=== PATIENT | male | born 1945 | race Caucasian/White ===

== ENCOUNTER 2017-04-02 12:53 | Inpatient (IN) ==
[2017-04-02] MEDS ORDERED: MOM Conc 10 ML UD.LIQ PO PRN (14:49)
[2017-04-02] MEDS ORDERED: Nitroglycerin 0.4 MG TAB.SUBL SL PRN (14:49)
[2017-04-02] MEDS: diazePAM 5 MG TABLET PO PRN (18:22)
[2017-04-02] MEDS: Insulin NPH/REG 70/30 100 UNIT/ML (x5UNIT) SQ SCH (19:35)
[2017-04-02] MEDS: Ranolazine 500 MG TAB.ER.12H PO SCH ×2 (19:40→19:41)
[2017-04-02] MEDS: *HR* OxyCODONE/APAP 5/325 TABLET PO PRN (19:43)
[2017-04-02] MEDS ORDERED: NON-FORMULARY MEDICATION 1 EACH EACH (Insulin Aspart Prot/Insuln Asp [Novolog Mix 70-30 Fl SQ SCH (21:00)
[2017-04-02] MEDS: Cholecalciferol (D-3) 1,000 UNIT TABLET PO SCH (21:14)
[2017-04-03] MEDS: *HR* OxyCODONE/APAP 5/325 TABLET PO PRN ×4 (01:49→22:52)
[2017-04-03] MEDS: Simethicone 80 MG TAB.CHEW PO PRN ×2 (01:51→18:23)
[2017-04-03] MEDS: Bumetanide 1 MG TABLET PO SCH (09:22)
[2017-04-03] MEDS: Cholecalciferol (D-3) 1,000 UNIT TABLET PO SCH ×2 (09:23→21:09)
[2017-04-03] MEDS: Insulin NPH/REG 70/30 100 UNIT/ML (x5UNIT) SQ SCH ×2 (09:26→21:23)
--- NOTE | 2017-04-03 14:25 | Internal Med Progress Note ---
Date of Encounter: 04/03/17 Time of Encounter: 14:15 - Assessment and plan (1) Rib fracture Current Visit: No Status: Acute Assessment and plan: April 03. Continue present analgesics. Qualifiers: Encounter type: subsequent encounter Rib fracture type: single rib Fracture type: closed Laterality: left Fracture healing: with routine healing Qualified Code(s): S22.32XD - Fracture of one rib, left side, subsequent encounter for fracture with routine healing (2) Gout Current Visit: No Status: Chronic Assessment and plan: April 03. Continue allopurinol Qualifiers: Gout site: unspecified site Gout etiology: unspecified cause Chronicity: chronic Presence of tophus: without tophus Qualified Code(s): M1A.9XX0 - Chronic gout, unspecified, without tophus (tophi) (3) Chronic diastolic heart failure Current Visit: No Status: Chronic Assessment and plan: April 03. Continue Bumex, nadolol, and isosorbide (4) HTN (hypertension) Current Visit: Yes Status: Acute Assessment and plan: April 03. Continue nadolol and isosorbide Qualifiers: Hypertension type: essential hypertension Qualified Code(s): I10 - Essential (primary) hypertension - Subjective Interval history: April 03. He was hospitalized in acute care March 29- after presenting to ER following a fall at home with a rib fracture and abrasions. He made satisfactory progress in therapy but it was felt he would benefit from a brief swing bed stay. He has no new complaints today and feels improved. He wishes to be discharged home tomorrow. - Constitutional Vitals: Temp Pulse Resp BP Pulse Ox 98.0 F 72 16 112/55 95 04/03/17 07:11 04/03/17 07:11 04/03/17 07:11 04/03/17 07:11 04/03/17 07:11 Exam: He is ambulating in the room with a quad cane and appears in no acute distress. Affect is bright and cheerful. I reviewed his medications and lab results. Consult Discharge Plan - Plan Referrals: Eddie Estrada MD [Primary Care Provider] - 1 week
[2017-04-03] MEDS: diazePAM 5 MG TABLET PO PRN ×2 (14:37→22:55)
[2017-04-03] MEDS: Ranolazine 500 MG TAB.ER.12H PO SCH (21:09)
[2017-04-04] MEDS: Ranolazine 500 MG TAB.ER.12H PO SCH (08:41)
[2017-04-04] MEDS: Bumetanide 1 MG TABLET PO SCH (08:41)
[2017-04-04] MEDS: Cholecalciferol (D-3) 1,000 UNIT TABLET PO SCH (08:45)
[2017-04-04] MEDS: *HR* OxyCODONE/APAP 5/325 TABLET PO PRN (09:16)
[2017-04-04 09:27] VITALS: BP 119/77
--- NOTE | 2017-04-04 09:35 | Discharge Summary ---
Date of Encounter: 04/04/17 Time of Encounter: 09:25 - Discharge Diagnosis (1) Rib fracture Priority: Primary Status: Acute Qualifiers: Encounter type: subsequent encounter Rib fracture type: single rib Fracture type: closed Laterality: left Fracture healing: with routine healing Qualified Code(s): S22.32XD - Fracture of one rib, left side, subsequent encounter for fracture with routine healing (2) Gout Priority: Secondary Status: Chronic Qualifiers: Gout site: unspecified site Gout etiology: unspecified cause Chronicity: chronic Presence of tophus: without tophus Qualified Code(s): M1A.9XX0 - Chronic gout, unspecified, without tophus (tophi) (3) Chronic diastolic heart failure Priority: Secondary Status: Chronic (4) HTN (hypertension) Priority: Secondary Status: Acute Qualifiers: Hypertension type: essential hypertension Qualified Code(s): I10 - Essential (primary) hypertension - Discharge Medications Prescriptions: OxyCODONE/APAP 5/325 [Percocet 5/325 MG] 1 each PO Q4HR PRN 4 Days #12 tablet PRN Reason: Pain Allopurinol [Zyloprim 100 MG] 100 mg PO DAILY #30 tablet Bumetanide [Bumex] 0.5 mg PO DAILY #15 tablet Home Medications: Cholecalciferol (Vitamin D3) [Vitamin D] 1,000 unit PO BID 01/02/15 [History] Insulin Aspart Prot/Insuln Asp [Novolog Mix 70-30 Flexpen Syrn] 43 unit SQ BID 01/02/15 [History] Nitroglycerin [Nitrostat] 0.4 mg SL PRN PRN 01/02/15 [History] Ranolazine [Ranexa] 500 mg PO BID 01/02/15 [History] Nadolol 20 mg PO DAILY 05/19/15 [History] diazePAM [Valium] 5 mg PO BID PRN 08/02/15 [History] Isosorbide DInitrate [Isosorbide Dinitrate] 30 mg PO BID 03/29/17 [History] Docusate [Colace] 100 mg PO BID PRN capsule 04/02/17 [Rx] Lidocaine Patch [Lidoderm 5% patch] 2 each TP DAILY adh..patch 04/02/17 [Rx] MOM Conc [MILK OF MAGNESIA conc] 10 ml PO DAILY PRN ud.liq 04/02/17 [Rx] Simethicone [Gas-X] 80 mg PO TID PRN tab.chew 04/02/17 [Rx] Allopurinol [Zyloprim 100 MG] 100 mg PO DAILY #30 tablet 04/04/17 [Rx] Bumetanide [Bumex] 0.5 mg PO DAILY #15 tablet 04/04/17 [Rx] OxyCODONE/APAP 5/325 [Percocet 5/325 MG] 1 each PO Q4HR PRN 4 Days #12 tablet [Rx] Allergies/Adverse Reactions: 3 Allergy/AdvReac Type Severity Reaction Status Date / Time carvedilol [From Coreg] Allergy Unknown Gastrointestinal Verified 03/29/17 00:37 Upset Penicillins Allergy Unknown Blister Verified 03/29/17 00:37 atenolol Allergy Rash Verified 03/29/17 00:37 Date of admission: 04/02/17 12:53 Primary care physician: Eddie Estrada MD Consults: 04/02/17 14:44 Consult to Occupational Therapy [CONS] Routine Comment: evaluate, develop, and implement plan of care Reason for Consult: evaluate, develop, and implement plan of care Consult to Physical Therapy [CONS] Routine Comment: evaluate, develop, and implement plan of care Reason for Consult: evaluate, develop, and implement plan of care Consult to Manager Of Exhibitions And Collections [CONS] Routine Reason for SW Consult: Discharge Planning - Patient Status Disposition: Home Health Service Functional capacity at discharge: uses cane/walker Overall status at discharge: patient is progressing back to baseline - Discharge Instructions Follow Up With: Eddie Estrada MD [Primary Care Provider] - 1 week - Diet and Activity Activity: resume usual activities as tolerated Diet: advance to your usual diet Hospital course: Mr. Braga is a 72 year old male who was hospitalized in acute care March 29- after presenting to ER following a fall at home with a rib fracture and abrasions. He made satisfactory progress in therapy but it was felt he would benefit from a brief swing bed stay. He was discharged to swing bed on April 02. He had further improvement and wished to be discharged home on April 04. He still complained of pain in his back and left thorax area. He will be given 12 Percocet pills for prn use. He will follow with his PCP within one week. Uric acid level in acute care returned elevated at 9.8. He was prescribed allopurinol but declined to take it stating his system support technician told him not to take allopurinol. I will give a prescription for this at discharge and he can discuss with his system support technician if he should start medication. He remained off Capoten and Lasix. He was given low-dose Bumex and continued on nadolol and isosorbide. He had clinical improvement with creatinine decreasing to 1.42 on 04/01/2017. He will remain on this regimen at home. - Time Spent with Patient Total time spent providing and/or coordinating discharge services: - Constitutional Vitals: Temp Pulse Resp BP Pulse Ox 97.8 F 79 16 119/77 94 04/04/17 07:47 04/04/17 08:37 04/04/17 07:47 04/04/17 08:37 04/04/17 07:47
--- NOTE | 2017-04-04 09:43 | Physician Discharge Referral ---
Home Health/Hosp Referral Info Transfer to: Home Health Attending Provider: Ruslan Provider in Charge Post Discharge: PCP (Eddie Estrada M.D.) - Diagnosis (1) Rib fracture Priority: Primary Status: Acute (2) Gout Priority: Secondary Status: Chronic (3) Chronic diastolic heart failure Priority: Secondary Status: Chronic (4) HTN (hypertension) Priority: Secondary Status: Acute - Respiratory Orders Smoking Cessation: Smoking cessation has been advised. For more information, call the [place] Tobacco Quit Line at 6-853-KNGI-NOW. - Diet/Nutrition Diet/Nutrition Orders: No Added Salt (PATO) - Activity Activity Orders: Ambulate - Services Needed Following services are medically necessary services: Nursing, Home Health Aide, Physical Therapy, Occupational Therapy - Transfer Medications Prescriptions: OxyCODONE/APAP 5/325 [Percocet 5/325 MG] 1 each PO Q4HR PRN 4 Days #12 tablet PRN Reason: Pain Allopurinol [Zyloprim 100 MG] 100 mg PO DAILY #30 tablet Bumetanide [Bumex] 0.5 mg PO DAILY #15 tablet Home Medications: Cholecalciferol (Vitamin D3) [Vitamin D] 1,000 unit PO BID 01/02/15 [History] Insulin Aspart Prot/Insuln Asp [Novolog Mix 70-30 Flexpen Syrn] 43 unit SQ BID 01/02/15 [History] Nitroglycerin [Nitrostat] 0.4 mg SL PRN PRN 01/02/15 [History] Ranolazine [Ranexa] 500 mg PO BID 01/02/15 [History] Nadolol 20 mg PO DAILY 05/19/15 [History] diazePAM [Valium] 5 mg PO BID PRN 08/02/15 [History] Isosorbide DInitrate [Isosorbide Dinitrate] 30 mg PO BID 03/29/17 [History] Docusate [Colace] 100 mg PO BID PRN capsule 04/02/17 [Rx] Lidocaine Patch [Lidoderm 5% patch] 2 each TP DAILY adh..patch 04/02/17 [Rx] MOM Conc [MILK OF MAGNESIA conc] 10 ml PO DAILY PRN ud.liq 04/02/17 [Rx] Simethicone [Gas-X] 80 mg PO TID PRN tab.chew 04/02/17 [Rx] Allopurinol [Zyloprim 100 MG] 100 mg PO DAILY #30 tablet 04/04/17 [Rx] Bumetanide [Bumex] 0.5 mg PO DAILY #15 tablet 04/04/17 [Rx] OxyCODONE/APAP 5/325 [Percocet 5/325 MG] 1 each PO Q4HR PRN 4 Days #12 tablet [Rx] Allergies/Adverse Reactions: 3 Allergy/AdvReac Type Severity Reaction Status Date / Time carvedilol [From Coreg] Allergy Unknown Gastrointestinal Verified 03/29/17 00:37 Upset Penicillins Allergy Unknown Blister Verified 03/29/17 00:37 atenolol Allergy Rash Verified 03/29/17 00:37 Certification: Further, I certify that my clinical findings support that this patient is homebound (i.e. absences from home require considerable and taxing effort and are for medical reasons or episcopal services or infrequently or short duration when for other reasons) because: Homebound Reason: Leaving home requires considerable and taxing effort due to condition (Fall with rib fracture and back pain) Attestation: My signature below is to certify that this patient is under my care and that I, or nurse practitioner, or a physician's preschool teacher's assistant working with me, has a face-to -face encounter with this patient.
== END 2017-04-04 10:19 | disposition home health service (06) | DRG 560 ==
LOC: INPPIK 12:53
PROVIDERS: ADMIT Internal Medicine; ATTEND Internal Medicine